=== PATIENT | female | born 1995 | race Caucasian/White ===

== ENCOUNTER 2021-03-08 12:29 | Inpatient (IN) ==
[2021-03-08] MEDS ORDERED: OXYTOCIN 30 UNITS/500 ML BAG IV PRN ×2 (13:08→17:23)
[2021-03-08] MEDS ORDERED: LACTATED RINGER'S 1,000 ML IV PRN (13:08)
--- NOTE | 2021-03-08 13:18 | History & Physical Report ---
Date of Service March 08, 2021 Assessment & Plan (1) Supervision of normal intrauterine in multigravida: Caridad Billings is a 25yo female currently at 39+2wga ([place] 03/13/21 by LMP) who presents to L&D in labor. -Admit, labs, start IV -Epidural when desired; anesthesiology consult placed -Rh pos, RI, GBS neg, COVID pending -Anticipate History of Present Illness Primary Care Provider: Eva Ramos Caridad Billings is a 25yo female currently at 39+2wga ([place] 03/13/21 by LMP) who presents to L&D in labor. [place] [facility]. + contractions q5-6min; + movement; - fluid loss; + bloody show Blood type: A pos Antibody screen: neg PNL: Rubella: immune RPR: nonreactive Gonorrhea: not detected Chlamydia: not detected HIV: negative HBsAg: negative GBS negative (02/18/21) COVID-19 pending Other screens: cff-DNA: declined CF: declined SMA: declined Allergies Allergy/AdvReac Type Severity Reaction Status Date / Time Sulfa (Sulfonamide Allergy Unknown Verified 03/08/21 12:37 Antibiotics) Home Medications Medication Instructions Recorded Confirmed Type prenat.vits,bentley,cht-fadf-qocla 1 tab PO DAILY 08/19/20 03/08/21 History ferrous sulfate 1 tab PO DAILY 02/04/21 03/08/21 History Past Med/Surg History Medical History (Updated 03/08/21 @ 13:23 by Arturo Grimes MD) Hemorrhage following tonsillectomy and adenoidectomy at age 10 Spontaneous vaginal delivery 06/2018 Social History (Updated 08/19/20 @ 14:14 by Ginna Gary) Smoking Status: Never smoker Hx Alcohol Use: No Hx Substance Use: No Preferred Language: Hebrew Communication Ability: Effective Beliefs That Will Affect Care: None marital status: marital status details: Jus (24) [phone] Current Living Situation: Spouse and Family Current Living Situation Comment: house current occupational status: employed and unemployed current occupation: homemaker Other Information That Helps Us Care for You: No Feels Safe at Home: Yes Safety Concerns: Feels Safe At This Time Assistive Devices: None Review of Systems Review of Systems: Denies fever or chills, shortness of breath or cough, chest pain, breast pain, dysuria, hematuria, leg pain or leg swelling, headache, or changes in vision. Physical Exam Physical Exam: General: well-appearing, alert, oriented, no acute distress Cardiac: regular rhythm, no murmur appreciated Respiratory: CTABL a/p, no wheezes/rales/rhonchi, no increased work of breathing, symmetrical chest rise, no respiratory distress Abdomen: normal gravid abdomen, + heart tones, + palpable contractions Pelvic: dilation 4cm, effacement 90%, station [address] Cleaning. External FHT and external uterine monitors used; category 1 tracing; mod FHT variability Lower extremities: no lower extremity edema or swelling, no deep calf pain, Chuy's negative bilaterally Results & Data Results & Data ([facility]) Vital Signs (Past 12 Hours) Vital Signs Temp Pulse Resp BP 03/08/21 12:43 36.9 C 18 03/08/21 12:36 116 H 137/93 Laboratory Results Labs at admission today Hgb: 13.5 Hct: 38.3 WBC: 12.95 Plt: 262 Supervising Physician Co-Signing Physician Notes Resident Physician Supervision Note: I was present with Dr. Arturo Veliz during the history and exam. I discussed the case with the resident and agree with the findings and plan as documented in the note. Any exceptions or clarifications are listed here: [None] Documented By: Snow Zarate MD, FACOG Resident Activity Tracking Resident Involvement: Resident Care Provided Care Provided: OB Delivery
[2021-03-08 13:24] LABS: Hematocrit (blood only) 38.3 % (37-47); Hemoglobin 13.5 g/dL (12.0-16.0); Mean Corpuscular Hemoglobin 29.2 pg (25-34); Mean Corpuscular Hgb Conc 35.2 g/dL (32-36); Mean Corpuscular Volume 82.9 fL (80-100); Platelet Count 262 K/uL (130-400); RDW Coefficient of Variation 13.4 % (11.5-14.5); RDW Standard Deviation 40.5 fL (36.4-46.3); Red Blood Count 4.62 M/uL (4.2-5.4); White Blood Count 12.95 K/uL (4.8-10.8)
[2021-03-08] MEDS ORDERED: ePHEDrine sulfate 50 MG/ML AMP ONE (14:45)
[2021-03-08] MEDS ORDERED: SODIUM CHLORIDE 0.9% INJ 10 ML VIAL ONE (14:45)
[2021-03-08] MEDS ORDERED: fentaNYL 2MCG/ML ROPIVACAINE 1.25MG/ML 100 ML BAG EPI ONE (14:46)
[2021-03-08] MEDS ORDERED: BUPIVACAINE 0.25% 30 ML VIAL ONE (14:46)
[2021-03-08] MEDS ORDERED: fentaNYL citrate 100 MCG/2 ML VIAL ONE (14:46)
[2021-03-08] MEDS ORDERED: diphenhydrAMINE 50 MG/ML VIAL IV PRN (14:53)
[2021-03-08] MEDS ORDERED: fentaNYL 2MCG/ML ROPIVACAINE 1.25MG/ML 100 ML BAG EPI PRN (14:53)
[2021-03-08] MEDS ORDERED: ONDANSETRON INJ 2 MG/ML 2 ML VIAL IV PRN (14:53)
[2021-03-08] MEDS ORDERED: ePHEDrine sulfate 50 MG/ML AMP IV PRN (14:53)
[2021-03-08] MEDS ORDERED: NALOXONE HCL 0.4 MG/1 ML VIAL/CARP IV PRN (14:53)
[2021-03-08] MEDS ORDERED: NALOXONE HCL 1 MG in SODIUM CHLORIDE 0.9% 1000ML 1,000 ML IV PRN (14:53)
--- NOTE | 2021-03-08 14:53 | Anesthesiology Consultation ---
Date of Service March 08, 2021 Assessment & Plan ASA ASA2 Proposed Anesthesia Anesthesia Type: Labor Epidural Risk / Benefits Reviewed With: PT / POA / Parent / Guardian, Accepts Plan and Informed Consent Obtained History Height/Weight Height: 5 ft 7 in Weight: 117.934 kg Allergies Allergy/AdvReac Type Severity Reaction Status Date / Time Sulfa (Sulfonamide Allergy Unknown Verified 03/08/21 12:37 Antibiotics) Medications Home Medications Medication Instructions Recorded Confirmed Last Taken prenat.vits,bentley,aym-gsnm-eupvu 1 tab PO DAILY 08/19/20 03/08/21 03/07/21 ferrous sulfate 1 tab PO DAILY 02/04/21 03/08/21 03/07/21 Active Medications Generic Name Dose Route Start Last Admin Trade Name Freq PRN Reason Stop Dose Admin Lactated Ringer's 1,000 mls @ 125 mls/hr 03/08/21 13:08 03/08/21 14:38 Lr IV 03/10/21 13:07 999 mls/hr .Q8H PRN Administration L&D Protocol Protocol Ropivacaine 100 ml 03/08/21 14:53 03/08/21 15:12 Fentanyl 2mcg/Ml Ropivacaine 1.25mg/Ml 100 Ml Bag EPI 03/09/21 14:52 100 ml PRN PRN Administration Pain R/T Labor Protocol Past Medical History Medical History Hemorrhage following tonsillectomy and adenoidectomy at age 10 Spontaneous vaginal delivery 06/2018 Exercise / Class Metabolic Activity II 4-5 Yardwork/Stairs/Walk up hill Past Anesthesia History No Hx of Anesthesia Complications and No Family Hx of Anesthesia Complications History of PONV No Hx of PONV and No Hx of Motion Sickness Social History Smoking Status: Never smoker Hx Alcohol Use: No Hx Substance Use: No Review of Systems denies fever/cough/ colds/ chest pain/ SOB/ [place] denies [place] Physical Exam Vital Signs Last Vital Signs Temp 36.9 C 03/08/21 12:43 Pulse 100 H 03/08/21 14:24 Resp 18 03/08/21 12:43 BP 134/85 03/08/21 14:24 ENMT Mouth: no TMJ abnormality and no dentition abnormality Thyromental Distance: > or= 3.5 Finger Breadths Mallampati Class: II Neck neck extension not limited Respiratory normal respiratory effort; no respiratory distress Auscultation: lungs clear to auscultation bilaterally Cardiovascular Rate/Rhythm: regular rate and regular rhythm Neurologic moves all extremities Psychiatric Orientation: alert and oriented x 3 Testing Laboratory Results 03/08/21 13:16
[2021-03-08] MEDS ORDERED: bisacodyL 10 MG SUPP PR PRN (17:23)
[2021-03-08] MEDS ORDERED: DIPHTHERIA/TETANUS/PERTUSSIS 0.5 ML SYR/VIAL IM ONE (17:23)
[2021-03-08] MEDS ORDERED: oxyCODONE/ACETAMINOPHEN 5mg/325mg TAB PO PRN (17:23)
[2021-03-08] MEDS ORDERED: BENZOCAINE 20% AER SPR 82.5 GM CAN EXT PRN (17:23)
[2021-03-08] MEDS ORDERED: SUPERCREAM 0.870% 15 GM JAR EXT PRN (17:23)
[2021-03-08] MEDS ORDERED: ACETAMINOPHEN 325 MG TAB PO PRN (17:23)
[2021-03-08] MEDS ORDERED: HYDROCORTISONE ACETATE 25 MG SUPP PR PRN (17:23)
--- NOTE | 2021-03-08 17:24 | Delivery Summary ---
Vaginal Delivery Summary Date of Service March 08, 2021 Patient is a 25-year-old 2 para 1-0-0-1 white female who presents at 39- 2/7 weeks in active labor. She had a bloody show but did not experience any rupture of membranes prior to arrival in labor and delivery. She requested epidural analgesia which was effective. At 7 cm dilation, membranes were attempted to be ruptured but there was minimal fluid present. She progressed to full dilation, and pushed effectively over intact perineum for delivery of a viable male . The rest of the infant delivered easily and was placed on the mother's abdomen for further attention and drying. The infant was vigorous and moving all 4 limbs. The placenta was expressed intact with a three-vessel cord. There was very little amniotic fluid noted after delivery of the baby. bleeding was controlled with dilute Pitocin. A superficial vaginal laceration was repaired because it was bleeding with a single wqvywh-qc-cvdru stitch of 3-0 chromic. Estimated blood loss was less than 200 cc. Mother and infant were doing well after delivery. Vaginal Delivery Summary and 1st Degree LAC [facility] [place] Vaginal Delivery Charge Delivery Type Details: and 1st Degree LAC
--- NOTE | 2021-03-08 17:53 | Anesthesia Procedure Note ---
Date of Service March 08, 2021 Anesthesia Post Epidural Note Vital Signs Vital Signs: Temp Pulse Resp BP Pulse Ox 37.0 C 115 H 20 133/68 98 03/08/21 15:32 03/08/21 17:48 03/08/21 17:35 03/08/21 17:48 03/08/21 17:40 Notes Mental Status: alert / awake / arousable and participated in evaluation Patient Amnestic to Procedure: Yes Nausea / Vomiting: adequately controlled Pain: adequately controlled Airway Patency, RR, SpO2: stable & adequate BP & HR: stable & adequate Hydration State: stable & adequate Anesthetic Complications: no major complications apparent and Pt Satisfied with anesthetic care
[2021-03-08] MEDS ORDERED: METHYLERGONOVINE MALEATE 0.2 MG/ML AMP IM STA (17:58)
[2021-03-08] MEDS ORDERED: METHYLERGONOVINE MALEATE 0.2 MG/ML AMP ONE (18:04)
[2021-03-08] MEDS: IBUPROFEN 600 MG TAB PO PRN (21:28)
[2021-03-08] MEDS: DOCUSATE SODIUM 100 MG CAP PO SCH (21:29)
[2021-03-09] MEDS: IBUPROFEN 600 MG TAB PO PRN ×3 (01:32→16:08)
--- NOTE | 2021-03-09 06:50 | Obstetrical Progress Note ---
Date of Service <Arturo Grimes MD - Last Filed: 03/09/21 07:43> March 09, 2021 Assessment & Plan <Arturo Grimes MD - Last Filed: 03/09/21 07:43> (1) Supervision of normal intrauterine in multigravida: A/P: Caridad Billings is a 25yoyo female on PPD#1 following at 39+2wga. * Patient feels well today; eating well, voiding well, ambulating well * Pain well-controlled with ibuprofen 600mg q4h prn * PNL: Rh pos, RI, GBS neg, COVID neg * Routine care: OOB, ambulation, diet progression as tolerated * After discharge, will have six-week follow-up with Dr. Cleaning Subjective <Arturo Grimes MD - Last Filed: 03/09/21 07:43> Caridad Billings is a 25yoyo female on PPD#1 following at 39+2wga. This morning she reports feeling well overall. Reports minimal crampy abdominal pain well-managed on analgesics. Tolerating PO intake without nausea or vomiting. Patient has been able to ambulate without lightheadedness or dizziness. Voiding well without difficulty. Lochia continues, though with some improvement this morning. Currently bottle-feeding. Review of Systems Denies fever, chills, CP, SOB, cough, breast pain, dysuria, leg pain, leg swelling, headache, and changes in vision. Physical Exam <Arturo Grimes MD - Last Filed: 03/09/21 07:43> General: alert, oriented, no acute distress Cardiac: regular rate and rhythm, no murmurs appreciated Respiratory: lungs clear to auscultation bilaterally a/p, no wheezes/rales/rhonchi, no increased work of breathing, symmetrical chest rise, no respiratory distress Abdomen: soft, minimally tender, nondistended, bowel sounds present Uterus: uterine fundus firm, palpable below umbilicus Lower extremities: no lower extremity edema or swelling, no deep calf pain, Chuy's negative bilaterally Results & Data ([facility]) <Arturo Grimes MD - Last Filed: 03/09/21 07:43> Vital Signs (Past 12 Hours) Vital Signs Temp Pulse Pulse Resp BP BP 03/09/21 04:30 37.0 C 90 18 130/80 03/09/21 00:00 36.8 C 96 H 18 132/86 03/08/21 19:50 37.2 C 103 H 18 112/76 03/08/21 18:56 100 H 127/68 03/08/21 18:50 18 <Snow Zarate MD, FACOG - Last Filed: 03/09/21 08:19> Co-Signing Physician Notes Resident Physician Supervision Note: I interviewed and examined the patient. Discussed with Dr. Grimes and agree with findings and plan as documented in the note. Any exceptions or clarifications are listed here: [None] Documented By: Snow Zarate MD, FACOG Resident Activity Tracking <Arturo Grimes MD - Last Filed: 03/09/21 07:43> Resident Involvement: Resident Care Provided Care Provided: OB Delivery
[2021-03-09] MEDS ORDERED: PRENATAL VITAMIN 1 TAB PO SCH (08:00)
[2021-03-09] MEDS: DOCUSATE SODIUM 100 MG CAP PO SCH (08:32)
[2021-03-09] MEDS ORDERED: NON-FORMULARY MEDICATION (Prenat.Vits,Cal,Min-Iron-Folic tablet) PO SCH (09:00)
[2021-03-09] MEDS ORDERED: bisacodyL 5 MG TABEC PO SCH (20:00)
== END 2021-03-09 17:55 | disposition home or self-care (01) | DRG 807 ==
LOC: OPB 12:29 → 4S1 12:34 → 4S2 19:35

== ENCOUNTER 2023-11-10 13:11 | Inpatient (IN) ==
[2023-11-10] MEDS ORDERED: LACTATED RINGER'S 1,000 ML IV PRN (13:31)
[2023-11-10] MEDS ORDERED: LIDOCAINE 1% LOCAL 20 ML VIAL INFIL PRN (13:31)
[2023-11-10] MEDS ORDERED: OXYTOCIN 30 UNITS/NSS 30 UNITS/500 ML BAG IV PRN ×2 (13:31→15:08)
--- NOTE | 2023-11-10 13:42 | History & Physical Report ---
Date of Service November 10, 2023 Assessment & Plan (1) Encounter for supervision of normal in multigravida: Plan Admit to L&D. EFM/toco. Labs. Anticipate . Desires epidural - hoping there is time before baby comes. History of Present Illness Chief Complaint: labor Primary Care Provider: Eva Ramos 28yo @ 40 01/10, sent from office after variable deceleration on routine NST. She is wandy every 2 minutes and very uncomfortable. No leaking fluid, no vaginal bleeding. + movement. Obesity (BMI between 35-39 @ beginning of ) *Growth US @ 32 wks *Weekly NSTs @ 36wks covid unvaccinated Flu shot given 07/21/23 - [place] Allergies Allergy/AdvReac Type Severity Reaction Status Date / Time Sulfa (Sulfonamide Allergy Unknown Verified 11/10/23 12:24 Antibiotics) Home Medications Medication Instructions Recorded Confirmed Type prenat.vits,bentley,xqx-msmm-uypnl 1 tab PO DAILY 03/22/23 11/10/23 History Patient History Medical History History of chicken pox Miscarriage Elevated blood pressure affecting in third trimester, antepartum Spontaneous vaginal delivery 06/2018 Hemorrhage following tonsillectomy and adenoidectomy at age 10 Surgical History S/P tonsillectomy and adenoidectomy Family History Father Asthma Grandmother (Maternal) Asthma Grandmother (Paternal) Asthma Denies family history of Ovarian cancer Breast cancer Colorectal cancer Social History (Updated 03/22/23 @ 14:13 by Gris Dobson) Smoking Status: Never smoker Do You Dip or Chew Tobacco: No; Hx Alcohol Use: No Hx Substance Use: No Preferred Language: Russian Communication Ability: Effective Visual Impairment: No Limitations Hearing Ability: Normal Beliefs That Will Affect Care: None marital status: marital status details: Jus Billings (27) [phone] Current Living Situation: Spouse and Family Current Living Situation Comment: lives with spouse, 2 children, cat-spouse changing litter current occupational status: unemployed current occupation: homemaker Feels Safe at Home: Yes Childhood Exposure to Second-Hand Smoke: No Diet: regular Gender Identity: Female Assistive Devices: None Review of Systems All systems reviewed & are unremarkable except as noted in HPI & below Physical Exam Constitutional: WD/WN, vitals as above Respiratory: normal respiratory effort, lungs clear to auscultation no respiratory distress Cardiovascular: Rate/Rhythm: regular rate and regular rhythm Gastrointestinal (Abdomen): Inspection/Auscultation: abdomen normal to inspection Percussion/Palpation: abdomen soft; abdomen nontender Gravid. No s/s chorio or abruption. Skin: no rashes, warm and dry Psychiatric: A+Ox3, euthymic affect Results & Data Vital Signs (Past 12 Hours) Vital Signs Temp Pulse Resp BP 11/10/23 13:18 36.5 C 83 20 141/88 H Code Status & VTE Plan VTE Prophylaxis Plan VTE Prophylaxis will be ordered: No Coding Level of Care Code None Diagnoses Encounter for supervision of normal in multigravida Z34.80
[2023-11-10] MEDS ORDERED: ePHEDrine sulfate 50 MG/ML AMP ONE (14:08)
[2023-11-10] MEDS ORDERED: fentANYL 2 MCG/ML BUPIVacaine 0.125%-NSS 100ML BAG ONE (14:08)
[2023-11-10] MEDS ORDERED: fentaNYL citrate PF 100 MCG/2 ML VIAL ONE (14:08)
[2023-11-10] MEDS ORDERED: BUPIVACAINE 0.25% PF 30 ML VIAL ONE (14:09)
[2023-11-10] MEDS ORDERED: LIDOCAINE 2%/EPINEPHRINE 1:200,000 20 ML PF ONE (14:09)
[2023-11-10] MEDS ORDERED: SODIUM CHLORIDE 0.9% PF INJ 10 ML VIAL ONE (14:09)
[2023-11-10 14:15] LABS: Hemoglobin 13.2 g/dl (12.0-16.0); Mean Corpuscular Hemoglobin 28.2 pg (25.0-34.0); Mean Corpuscular Hgb Conc 33.8 g/dL (32.0-36.0); Mean Corpuscular Volume 83.3 fL (80.0-100.0); Mean Platelet Volume 11.4 fL (9.4-12.4); Platelet Count 257 K/uL (130-400); RDW Coefficient of Variation 13.4 % (11.5-14.5); RDW Standard Deviation 40.8 fL (36.4-46.3); Red Blood Count 4.68 M/uL (4.20-5.40); White Blood Count 14.16 K/ul (4.8-10.8)
[2023-11-10] MEDS ORDERED: fentaNYL citrate PF 100 MCG/2 ML VIAL EPI STA (14:17)
[2023-11-10] MEDS ORDERED: SODIUM CHLORIDE 0.9% PF INJ 10 ML VIAL EPI PRN (14:17)
[2023-11-10] MEDS ORDERED: LIDOCAINE 2%/EPINEPHRINE 1:200,000 20 ML PF EPI STA (14:17)
[2023-11-10] MEDS ORDERED: ePHEDrine sulfate 50 MG/ML AMP IV PRN (14:17)
[2023-11-10] MEDS ORDERED: fentANYL 2 MCG/ML BUPIVacaine 0.125%-NSS 100ML BAG EPI PRN (14:17)
[2023-11-10] MEDS ORDERED: fentaNYL citrate PF 100 MCG/2 ML VIAL EPI PRN (14:17)
[2023-11-10] MEDS ORDERED: NALBUPHINE HCL 5 MG in SYRINGE 0 ML IV PRN (14:17)
[2023-11-10] MEDS ORDERED: NALOXONE HCL 1 MG in SODIUM CHLORIDE 0.9% 1,000 ML IV PRN (14:17)
[2023-11-10] MEDS ORDERED: NALOXONE HCL 0.4 MG/1 ML VIAL/CARP IV PRN (14:17)
[2023-11-10] MEDS ORDERED: LIDOCAINE 2% MPF LOCAL 5 ML VIAL EPI PRN (14:17)
[2023-11-10] MEDS ORDERED: SODIUM CHLORIDE 0.9% PF INJ 10 ML VIAL EPI STA (14:17)
[2023-11-10] MEDS ORDERED: BUPIVACAINE 0.25% PF 30 ML VIAL EPI STA (14:17)
[2023-11-10] MEDS ORDERED: ONDANSETRON INJ 2 MG/ML 2 ML VIAL IV PRN (14:17)
[2023-11-10] MEDS ORDERED: ROPIVACAINE 0.5% PF 5 MG/ML 20 ML VIAL EPI PRN (14:17)
[2023-11-10] MEDS ORDERED: diphenhydrAMINE 50 MG/ML VIAL IV PRN (14:17)
[2023-11-10] MEDS ORDERED: BUPIVACAINE 0.25% PF 30 ML VIAL EPI PRN (14:17)
--- NOTE | 2023-11-10 14:20 | Anesthesiology Consultation ---
Date of Service November 10, 2023 Assessment & Plan (1) Encounter for pre-operative examination: Chart Review Chart Review: Patient NOT seen in Pre Admission Testing and Acceptable Risk for Labor Epidural Consults Requested none History Height/Weight Height: 5 ft 7 in Weight: 133.356 kg Allergies Allergy/AdvReac Type Severity Reaction Status Date / Time Sulfa (Sulfonamide Allergy Unknown Verified 11/10/23 12:24 Antibiotics) Medications Home Medications Medication Instructions Recorded Confirmed Last Taken prenat.vits,bentley,tsq-nrcc-ajasg 1 tab PO DAILY 03/22/23 11/10/23 11/02/23 15:00 Active Medications Generic Name Dose Route Start Last Admin Trade Name Freq PRN Reason Stop Dose Admin Lactated Ringer's 1,000 mls @ 125 mls/hr 11/10/23 13:31 11/10/23 13:55 Lr IV 11/12/23 13:30 999 mls/hr .Q8H PRN Administration L&D Protocol Protocol Past Medical History Medical History (Updated 11/10/23 @ 14:20 by Ryan Mancera MD) Encounter for pre-operative examination History of chicken pox Miscarriage Elevated blood pressure affecting in third trimester, antepartum Spontaneous vaginal delivery 06/2018 Hemorrhage following tonsillectomy and adenoidectomy at age 10 Exercise / Class Metabolic Activity II 4-5 Yardwork/Stairs/Walk up hill Past Family History Family History Father Asthma Grandmother (Maternal) Asthma Grandmother (Paternal) Asthma Denies family history of Ovarian cancer Breast cancer Colorectal cancer Past Surgical History Surgical History S/P tonsillectomy and adenoidectomy Past Anesthesia History No Hx of Anesthesia Complications and No Family Hx of Anesthesia Complications History of PONV No Hx of PONV and No Hx of Motion Sickness Social History Smoking Status: Never smoker Do You Dip or Chew Tobacco: No Hx Alcohol Use: No Hx Substance Use: No substance use type: does not use Physical Exam Vital Signs Last Vital Signs Temp 36.5 C 11/10/23 13:18 Pulse 83 11/10/23 13:18 Resp 20 11/10/23 13:18 BP 141/88 H 11/10/23 13:18 Testing Laboratory Results 11/10/23 13:47
[2023-11-10 14:26] LABS: Alanine Aminotransferase 9 U/L (7-52); Albumin Globulin Ratio 1.2 (0.9-2); Albumin Level 3.6 gm/dl (3.4-5.0); Alkaline Phosphatase 100 U/L (34-104); Anion Gap 12 (3-11); Aspartate Aminotransferase 15 U/L (13-39); BUN Creatinine Ratio 11.4 (10-20); Bilirubin Direct 0.1 mg/dl (0-0.2); Blood Urea Nitrogen 5 mg/dl (6-23); Calcium 9.3 mg/dl (8.6-10.3); Carbon Dioxide 18 mmol/L (21-32); Chloride 105 mmol/L (98-107); Creatinine Clr Calc Pharmacy 268.9 ml/min; Est GFR (African American) > 150.0 ml/min; Est GFR (Non-African American) 136.4 ml/min; Glucose 89 mg/dl (70-99(Fasting)); Potassium 3.6 mmol/L (3.5-5.1); Sodium 135 mmol/L (136-145); Total Protein 6.6 gm/dl (6.0-8.3)
--- NOTE | 2023-11-10 15:02 | Delivery Summary ---
Vaginal Delivery Summary Date of Service November 10, 2023 Vaginal Delivery Summary and 1st Degree LAC Vaginal Delivery Summary: Pre-delivery diagnoses: 28yo @ 40 3/, spontaneous labor Post-delivery diagnoses: same Procedure: spontaneous vaginal delivery Surgeon: Savanna Acevedo DO Complications: none Findings: Viable male . Apgars: 8/8 . Weight pending, please see nursery records Estimated blood loss: 300ml Description of delivery: The patient progressed to complete without anesthesia. She felt urge to push, and pushed once. Thick meconium. She spontaneously vaginally delivered a viable from the cephalic presentation. The head delivered in MJ position. Tight nuchal, delivered through. The anterior shoulder delivered, followed by the posterior shoulder, followed by the body. The baby was placed on mother's abdomen and a spontaneous cry was heard. The cord was doubly clamped and cut. A segment was retained for cord gases. Cord blood was obtained. The placenta was delivered spontaneously intact with a 3- vessel cord. The uterus and vagina were swept of clots and debris. IV pitocin was given. The uterus became firm. The cervix, vagina, and perineum were inspected and a 1st degree perineal laceration was noted, 1% lidocaine was used, and repaired with 3-0 Vicryl in standars fashion. Excellent hemostasis was observed. The mother and baby are recovering in stable and good condition in the room. Sponge, needle and instrument counts were correct x 2. Savanna Acevedo DO [facility] Vaginal Delivery Charge Vaginal Delivery Codes: 77815 global code for the antepartum, delivery, and post- Delivery Type Details: and 1st Degree LAC
[2023-11-10] MEDS ORDERED: HYDROCORTISONE ACETATE 25 MG SUPP PR PRN (15:08)
[2023-11-10] MEDS ORDERED: BENZOCAINE 20% SPRY 85 APPLN/85 GM CAN EXT PRN (15:08)
[2023-11-10] MEDS ORDERED: bisacodyL 10 MG SUPP PR PRN (15:08)
[2023-11-10] MEDS ORDERED: DIPHTHERIA/TETANUS/PERTUSSIS Vaccine (Tdap, Age 7+yrs) 0.5mL SYR/VL IM ONE (15:08)
[2023-11-10] MEDS ORDERED: ACETAMINOPHEN 325 MG TAB PO PRN (15:08)
[2023-11-10] MEDS ORDERED: oxyCODONE/ACETAMINOPHEN 5mg/325mg TAB PO PRN (15:08)
[2023-11-10] MEDS: IBUPROFEN 600 MG TAB PO PRN ×2 (15:38→21:36)
[2023-11-10] MEDS ORDERED: TRANEXAMIC ACID / 0.7% NACL 1000MG/100ML BAG IV ONE (17:20)
[2023-11-10] MEDS ORDERED: miSOPROStoL 200 MCG TAB ONE (17:20)
[2023-11-10] MEDS ORDERED: TRANEXAMIC ACID / 0.7% NACL 1,000 MG/100 ML BAG IV STA (17:22)
[2023-11-10] MEDS ORDERED: miSOPROStoL 200 MCG TAB PR ONE (17:22)
--- NOTE | 2023-11-10 17:25 | Obstetrical Progress Note ---
Date of Service November 10, 2023 Assessment & Plan Admission and Anticipated Discharge Date Admission Date: November 10, 2023 Subjective Called to patient room, larger than normal bleeding. I examined patient, she is awake and talking, states she feels fine. Manually extracted approx 300cc blood clots from uterus. Fundus firm afterwards, at uterus. Ordered TXA 1g, cytotec 1000mcg. Will check H/H. Hemabate not ordered d/t asthma history, and has had some elevated BPs so did not order methergine at this time. Results & Data Vital Signs (Past 12 Hours) Vital Signs Temp Pulse Resp BP 11/10/23 17:06 36.6 C 11/10/23 17:04 91 H 144/86 H 11/10/23 16:45 20 11/10/23 16:40 68 125/73 11/10/23 16:15 20 11/10/23 16:10 69 116/60 11/10/23 15:55 83 112/60 11/10/23 15:45 36.8 C 11/10/23 15:40 73 130/77 11/10/23 15:30 16 11/10/23 15:25 89 126/78 11/10/23 15:15 20 11/10/23 15:07 75 140/78 11/10/23 15:00 20 11/10/23 14:45 36.8 C 11/10/23 14:43 90 159/72 H 11/10/23 13:18 36.5 C 83 20 141/88 H PG Care Time/CCT Total # of Minutes Spent Total Time Spent with Patient: Total time spent is greater than 50% in coordination of care (as documented) at patient's floor/unit and/or counseling patient: Coding Level of Care Code None
[2023-11-10 18:06] LABS: Hemoglobin 12.3 g/dl (12.0-16.0)
--- NOTE | 2023-11-10 18:29 | Obstetrical Progress Note ---
Date of Service November 10, 2023 Assessment & Plan Admission and Anticipated Discharge Date Admission Date: November 10, 2023 Subjective Pt still feeling well. Vitals stable. Has rec'd cytotec and TXA. Bleeding has significantly slowed - there was a small clot that passed. In the process of transferring back to &D for nursing staffing ratio to closely monitor. Hgb from stat labs 12.3. Results & Data Vital Signs (Past 12 Hours) Vital Signs Temp Pulse Resp BP 11/10/23 17:38 85 20 124/81 11/10/23 17:06 36.6 C 11/10/23 17:04 91 H 144/86 H 11/10/23 16:45 20 11/10/23 16:40 68 125/73 11/10/23 16:15 20 11/10/23 16:10 69 116/60 11/10/23 15:55 83 112/60 11/10/23 15:45 36.8 C 11/10/23 15:40 73 130/77 11/10/23 15:30 16 11/10/23 15:25 89 126/78 11/10/23 15:15 20 11/10/23 15:07 75 140/78 11/10/23 15:00 20 11/10/23 14:45 36.8 C 20 11/10/23 14:43 90 159/72 H 11/10/23 13:18 36.5 C 83 20 141/88 H PG Care Time/CCT Total # of Minutes Spent Total Time Spent with Patient: Total time spent is greater than 50% in coordination of care (as documented) at patient's floor/unit and/or counseling patient: Coding Level of Care Code None
[2023-11-10] MEDS ORDERED: LACTATED RINGER'S 1,000 ML IV ONE (19:00)
[2023-11-10] MEDS ORDERED: BUTORPHANOL TARTRATE 1 MG/ML VIAL IV ONE (19:02)
[2023-11-10] MEDS ORDERED: BUTORPHANOL TARTRATE 1 MG/ML VIAL ONE (19:06)
--- NOTE | 2023-11-10 19:32 | Obstetrical Progress Note ---
Date of Service November 10, 2023 Assessment & Plan Admission and Anticipated Discharge Date Admission Date: November 10, 2023 Subjective Patient continues to feel well. At L&D, patient given 1mg Stadol for pain control, exam performed and manually expressed 275cc (weighed) clots from uterus. Dioxn catheter placed, draining well, clear yellow urine. Nedra system placed, 120cc sterile water into extracervical balloon, hooked to wall suction 80mmHg. Patient tolerated well. Vitals remain stable. Minimal blood in Nedra tubing, no bleeding around device out of vagina, and uterine fundus is firm, below umbilicus. Suspect uterine atony as cause of hemorrhage, as no bleeding lacerations of vagina or cervix on exam, and uterine cavity was filled with clots (which were then expressed). Total bleeding: approx 300cc EBL at time of delivery + 365cc weighed chux with initial diagnosis of hemorrhage after patient's move to unit + 275cc weighed chux after return to L&D at the time of exam and Nedra insertion. Results & Data Vital Signs (Past 12 Hours) Vital Signs Temp Pulse Resp BP 11/10/23 19:21 96 H 145/79 H 11/10/23 17:38 85 20 124/81 11/10/23 17:06 36.6 C 20 11/10/23 17:04 91 H 144/86 H 11/10/23 16:45 20 11/10/23 16:40 68 125/73 11/10/23 16:15 20 11/10/23 16:10 69 116/60 11/10/23 15:55 83 112/60 11/10/23 15:45 36.8 C 20 11/10/23 15:40 73 130/77 11/10/23 15:30 16 11/10/23 15:25 89 126/78 11/10/23 15:15 20 11/10/23 15:07 75 140/78 11/10/23 15:00 20 11/10/23 14:45 36.8 C 20 11/10/23 14:43 90 159/72 H 11/10/23 13:18 36.5 C 83 20 141/88 H PG Care Time/CCT Total # of Minutes Spent Total Time Spent with Patient: Total time spent is greater than 50% in coordination of care (as documented) at patient's floor/unit and/or counseling patient: Coding Level of Care Code None
[2023-11-10] MEDS: LACTATED RINGER'S 1,000 ML IV PRN (20:06)
[2023-11-10] MEDS: ceFAZolin 1000MG 1,000 MG/7.5 ML SYR IV SCH (20:31)
--- NOTE | 2023-11-10 20:32 | Obstetrical Progress Note ---
Date of Service November 10, 2023 Assessment & Plan Admission and Anticipated Discharge Date Admission Date: November 10, 2023 Subjective Recheck, patient continues to feel well. Vitals stable. Some blood in Nedra tubing, no blood in cannister. No blood on pad under patient. No blood with fundal massage. Fundus firm, at umbilicus. Ancef 1g q8h x 3 doses d/t intrauterine device. Results & Data Vital Signs (Past 12 Hours) Vital Signs Temp Pulse Resp BP 11/10/23 20:21 70 18 127/67 11/10/23 20:06 75 18 127/71 11/10/23 19:51 78 18 130/79 11/10/23 19:37 87 18 139/86 11/10/23 19:27 86 18 144/70 H 11/10/23 19:21 36.8 C 96 H 18 145/79 H 11/10/23 17:38 85 20 124/81 11/10/23 17:35 78 20 135/85 11/10/23 17:15 85 20 124/86 11/10/23 17:06 36.6 C 20 11/10/23 17:04 91 H 144/86 H 11/10/23 16:45 20 11/10/23 16:40 68 125/73 11/10/23 16:15 20 11/10/23 16:10 69 116/60 11/10/23 15:55 83 112/60 11/10/23 15:45 36.8 C 20 11/10/23 15:40 73 130/77 11/10/23 15:30 16 11/10/23 15:25 89 126/78 11/10/23 15:15 20 11/10/23 15:07 75 140/78 11/10/23 15:00 20 11/10/23 14:45 36.8 C 20 11/10/23 14:43 90 159/72 H 11/10/23 13:18 36.5 C 83 20 141/88 H PG Care Time/CCT Total # of Minutes Spent Total Time Spent with Patient: Total time spent is greater than 50% in coordination of care (as documented) at patient's floor/unit and/or counseling patient: Coding Level of Care Code None
[2023-11-11] MEDS: LACTATED RINGER'S 1,000 ML IV PRN (03:49)
[2023-11-11] MEDS: ceFAZolin 1000MG 1,000 MG/7.5 ML SYR IV SCH ×2 (05:59→13:16)
--- NOTE | 2023-11-11 07:28 | Obstetrical Progress Note ---
Date of Service November 11, 2023 Assessment & Plan (1) Encounter for care and examination after delivery: KEE removed and will watch for bleeding for another 30 minutes & if stable transfer to ppx room D/C Parekh catheter and advance diet. continue rest of routine orders Subjective Ambulation: ambulating normally Voiding: parekh catheter in place Passing Gas:: Yes Diet Tolerance:: regular diet Lochia:: Moderate Feeding Type:: breast feeding KEE device under suction with minimal blood in tubing and on chux. mild cramping noted Review of Systems All systems reviewed & are unremarkable except as noted in HPI & below Physical Exam Constitutional WD/WN, vitals as above Psychiatric A+Ox3, euthymic affect Genitourinary OB Exam Abdomen: + fundal height Fundus: + firm and + relation to umbilicus (at U) KEE taken off suction at 0630. 120 cc sterile water removed from balloon 30 minutes later KEE removed without difficulty Results & Data Vital Signs (Past 12 Hours) Vital Signs Temp Pulse Resp BP 11/11/23 07:21 91 H 126/69 11/11/23 06:51 90 132/68 11/11/23 06:21 83 128/73 11/11/23 05:51 83 18 121/65 11/11/23 05:21 80 128/73 11/11/23 04:51 83 18 135/79 11/11/23 04:21 75 130/61 11/11/23 03:51 98.4 F 84 18 123/64 11/11/23 03:36 75 120/69 11/11/23 03:21 80 116/66 11/11/23 03:06 82 124/73 11/11/23 02:51 88 18 125/71 11/11/23 02:36 81 123/65 11/11/23 02:21 77 124/65 11/11/23 02:06 86 126/66 11/11/23 01:51 82 18 128/67 11/11/23 01:36 75 124/71 11/11/23 01:21 75 118/64 11/11/23 01:06 75 111/61 11/11/23 00:51 72 18 117/67 11/11/23 00:36 73 116/68 11/11/23 00:21 77 123/69 01/06/24 00:06 75 120/69 11/10/23 23:51 75 119/72 11/10/23 23:36 75 127/72 11/10/23 23:21 79 124/73 11/10/23 23:06 73 123/66 11/10/23 22:51 97.9 F 76 18 123/67 11/10/23 22:36 76 117/71 11/10/23 22:06 74 123/71 11/10/23 21:56 76 18 121/68 11/10/23 21:36 71 127/69 11/10/23 21:21 80 18 125/66 11/10/23 21:06 74 117/61 11/10/23 20:51 84 18 122/66 11/10/23 20:36 82 134/65 11/10/23 20:21 70 18 127/67 11/10/23 20:06 75 18 127/71 11/10/23 19:51 78 18 130/79 11/10/23 19:37 87 18 139/86 11/10/23 19:27 86 18 144/70 H
[2023-11-11 07:52] LABS: Hematocrit (blood only) 31.4 % (37.0-47.0); Hemoglobin 10.6 g/dl (12.0-16.0)
[2023-11-11] MEDS: DOCUSATE SODIUM 100 MG CAP PO SCH ×3 (09:46→19:16)
[2023-11-11] MEDS: PRENATAL VITAMIN 1 TAB PO SCH (09:46)
[2023-11-11] MEDS: IBUPROFEN 600 MG TAB PO PRN (19:16)
[2023-11-11] MEDS: bisacodyL 5 MG TABEC PO SCH ×2 (19:17→21:12)
[2023-11-12] MEDS: IBUPROFEN 600 MG TAB PO PRN ×2 (02:07→07:29)
[2023-11-12] MEDS: DOCUSATE SODIUM 100 MG CAP PO SCH (07:28)
[2023-11-12] MEDS: PRENATAL VITAMIN 1 TAB PO SCH (07:28)
--- NOTE | 2023-11-12 08:47 | Obstetrical Progress Note ---
Date of Service November 12, 2023 Assessment & Plan (1) Encounter for care and examination after delivery: Day 2 day status post vaginal delivery. Doing well today. H/H yesterday morning noted to be above 10/30. Minimal bleeding noted. Stable for Discharge Subjective Ambulation: ambulating normally Voiding: no voiding problems Passing Gas:: Yes Diet Tolerance:: regular diet Lochia:: Moderate Feeding Type:: breast feeding Denies calf tenderness Physical Exam Constitutional WD/WN, vitals as above Respiratory normal respiratory effort; no respiratory distress and no labored breathing Gastrointestinal (Abdomen) Inspection/Auscultation: abdomen normal to inspection; abdomen not distended Percussion/Palpation: abdomen soft; abdomen nontender, no guarding and abdomen not rigid Genitourinary OB Exam Abdomen: + fundal height Fundus: + firm and + relation to umbilicus (Below); not tender or not boggy Results & Data Vital Signs (Past 12 Hours) Vital Signs Temp Pulse Resp BP Pulse Ox O2 Del Method 11/12/23 07:00 36.5 C 91 H 18 137/88 96 Room Air 11/11/23 23:32 36.8 C 88 18 128/85 96 Room Air
== END 2023-11-12 13:36 | disposition home or self-care (01) | DRG 768 ==
LOC: OPB 13:11 → 4S1 13:13 → 4E2 17:18 → 4S1 18:49 → 4E1 11-11 09:18